=== PATIENT | female | born 1950 | race African-American/Black ===

== ENCOUNTER 2019-04-10 12:58 | Emergency (ER) | payer MEDICARE ==
[2019-04-10] MEDS ORDERED: Ketorolac Tromethamine 30 MG/ML VIAL ONE (14:48)
--- NOTE | 2019-04-10 15:01 | RAD ---
XR Sacrum and Coccyx STANDARD HISTORY: Sacral pain x1 month COMPARISON: None. FINDINGS: The bones are demineralized. There are vascular calcifications, there is no evidence of fra cture or any definite findings that would suggest osteomyelitis. IMPRESSION: No acute changes.
== END 2019-04-10 16:27 | disposition home or self-care (01) ==
LOC: ERS 12:58
DX: M53.3 Sacrococcygeal disorders, not elsewhere classified (principal); E11.22 Type 2 diabetes mellitus with diabetic chronic kidney disease; I12.0 Hypertensive chronic kidney disease with stage 5 chronic kidney disease or end stage renal disease; N18.6 End stage renal disease; Z99.2 Dependence on renal dialysis; Z79.899 Other long term (current) drug therapy
CPT/HCPCS: 72220; 96372; J1885

== ENCOUNTER 2019-08-13 16:25 | Emergency (ER) | payer MEDICARE ==
--- NOTE | 2019-08-13 17:38 | RAD ---
XR Chest 1 View Portable History: Chest pain Comparison: Radiograph 2015 Findings: Lungs are mildly hypoinflated. Heart size is enlarged. No pneumothorax. No definite airspac e consolidation. Impression: Lung hypoinflation with bibasilar atelectasis and cardiomegaly.
[2019-08-13 18:11] LABS: #Eosinphils 0.1 thou/uL (0.0-0.7); #Lymphocytes 1.5 thou/uL (1.20-3.40); #Monocytes 0.5 thou/uL (0.11-0.59); #Neutrophils 2.8 thou/uL (1.40-6.50); %Basophils 0.4 % (0.0-1.0); %Eosinophils 2.2 % (0.0-10.0); %Lymphocytes 30.3 % (21.0-51.0); %Monocytes 10.8 % (0.0-10.0); %Neutrophils 56.4 % (42.0-75.0); Hemoglobin 11.2 g/dL (12.0-16.0); Mean Corpuscular HGB CONC 31.6 g/dL (32.0-36.0); Mean Corpuscular Hemoglobin 26.7 pg (27.0-31.0); Mean Corpuscular Volume 84.5 fL (78.0-98.0); Mean Platelet Volume 10.5 fL (7.4-10.4); Platelet Count 137 thou/uL (130-400); RBC Distribution Width 15.5 % (11.5-14.5); Red Blood Cell (RBC) Count 4.21 mill/uL (4.20-5.40); White Blood Cell (WBC) Count 4.9 thou/uL (4.8-10.8)
[2019-08-13 18:33] LABS: ALT (SGPT) 10 U/L (8-55); AST (SGOT) 14 U/L (5-34); Albumin 3.8 g/dL (3.4-4.8); Alkaline Phosphatase 52 U/L (40-110); Anion Gap 16 mmol/L (10-20); BUN (Urea Nitrogen) 44 mg/dL (9.8-20.1); Bilirubin, Total 0.7 mg/dL (0.2-1.2); CK (CPK) 157 U/L (29-168); Calc. Creatinine Clearance 0 mL/min (70-130); Calcium 9.3 mg/dL (7.8-10.44); Carbon Dioxide 32 mmol/L (23-31); Chloride 97 mmol/L (98-107); Estimated GFR-MDRD 8; Globulin 3.1 g/dL (2.4-3.5); Glucose 107 mg/dL (83-110); Potassium 4.6 mmol/L (3.5-5.1); Protein, Total 6.9 g/dL (6.0-8.3); Sodium 140 mmol/L (136-145)
[2019-08-13] MEDS ORDERED: Aspirin 325 MG TAB ONE (18:52)
[2019-08-13 18:54] LABS: CKMB 1.7 ng/mL (0-6.6)
== END 2019-08-13 19:53 | disposition home or self-care (01) ==
LOC: ERS 16:25
DX: T82.118A Breakdown (mechanical) of other cardiac electronic device, initial encounter (principal); I12.0 Hypertensive chronic kidney disease with stage 5 chronic kidney disease or end stage renal disease; N18.6 End stage renal disease; E11.9 Type 2 diabetes mellitus without complications; Z79.899 Other long term (current) drug therapy; Z79.51 Long term (current) use of inhaled steroids; Z79.891 Long term (current) use of opiate analgesic; Z79.82 Long term (current) use of aspirin
CPT/HCPCS: 36415; 71045; 80053; 82550; 82553; 84484; 85025; 93005

== ENCOUNTER 2019-12-21 13:18 | Outpatient (CLI) | payer MEDICARE ==
--- NOTE | 2019-12-21 13:52 | RAD ---
Chest 2 views HISTORY: Dyspnea. Evaluate defibrillator lead for fracture. COMPARISON: 08/13/2019. FINDINGS: Cardiac silhouette is enlarged. Pulmonary vasculature upper limits of normal. Mediastinum is midline. A single lead left subclavian cardiac defibrillator is in place. While a smal l portion of the proximal metallic lead is obscured by the pacer pack, there is no evidence of discontinuity of the metallic lead. It is in good radiographic position. No confluent airspace consolidation, pneumothorax, or pleural fluid. Ossification of anterior longitudinal ligament of the thoracic spine on the lateral view is consisten t with diffuse idiopathic skeletal hyperostosis. IMPRESSION : No radiographic evidence of complication of the defibrillator. Metallic lead is intact. Cardiomegaly with borderline pulmonary vascular congestion.
== END 2019-12-21 13:19 | disposition home or self-care (01) ==
LOC: BICRAD 13:18
PROVIDERS: ATTEND Internal Medicine Cardiovascular Disease
DX: R06.00 Dyspnea, unspecified (principal); I51.7 Cardiomegaly; R09.89 Other specified symptoms and signs involving the circulatory and respiratory systems
CPT/HCPCS: 71046

== ENCOUNTER 2020-06-05 10:53 | Outpatient (CLI) | payer MEDICARE ==
--- NOTE | 2020-06-05 11:36 | RAD ---
EXAM: 3 views of the left wrist HISTORY: Wrist pain COMPARISON: None FINDINGS: 3 views of the left wrist shows no evidence of acute fracture or dislocation. No soft tissu e swelling is seen. Moderate degenerative changes are seen in the first CMC joint, which predominantly involves osseous erosions rather than osteophyte formation. No significant radiocarpal degenerative changes are seen. Vascular calcifications are seen. IMPRESSION: Moderate degenerative changes in the first CMC joint
== END 2020-06-05 10:54 | disposition home or self-care (01) ==
LOC: BICRAD 10:53
PROVIDERS: ATTEND Nurse Practitioner Family
DX: M25.532 Pain in left wrist (principal); M18.12 Unilateral primary osteoarthritis of first carpometacarpal joint, left hand

== ENCOUNTER 2020-09-17 19:10 | Inpatient (IN) | payer MEDICARE ==
[2020-09-17 19:52] LABS: #Lymphocytes 0.7 thou/uL (1.20-3.40); #Monocytes 0.4 thou/uL (0.11-0.59); #Neutrophils 2.1 thou/uL (1.40-6.50); %Basophils 0.1 % (0.0-1.0); %Eosinophils 0.6 % (0.0-10.0); %Lymphocytes 20.7 % (21.0-51.0); %Monocytes 13.1 % (0.0-10.0); %Neutrophils 65.5 % (42.0-75.0); Hemoglobin 11.6 g/dL (12.0-16.0); Mean Corpuscular HGB CONC 30.9 g/dL (32.0-36.0); Mean Corpuscular Hemoglobin 26.2 pg (27.0-31.0); Mean Corpuscular Volume 84.5 fL (78.0-98.0); Mean Platelet Volume 12.3 fL (7.4-10.4); Platelet Count 102 thou/uL (130-400); RBC Distribution Width 16.2 % (11.5-14.5); Red Blood Cell (RBC) Count 4.44 mill/uL (4.20-5.40); White Blood Cell (WBC) Count 3.2 thou/uL (4.8-10.8)
[2020-09-17 20:03] LABS: ALT (SGPT) 12 U/L (8-55); AST (SGOT) 26 U/L (5-34); Albumin 3.7 g/dL (3.4-4.8); Alkaline Phosphatase 44 U/L (40-110); Anion Gap 20 mmol/L (10-20); BUN (Urea Nitrogen) 40 mg/dL (9.8-20.1); Bilirubin, Total 0.9 mg/dL (0.2-1.2); Calc. Creatinine Clearance 0 mL/min (70-130); Calcium 8.3 mg/dL (7.8-10.44); Carbon Dioxide 29 mmol/L (23-31); Chloride 93 mmol/L (98-107); Globulin 3.8 g/dL (2.4-3.5); Glucose 94 mg/dL (83-110); Potassium 3.8 mmol/L (3.5-5.1); Protein, Total 7.5 g/dL (6.0-8.3); Sodium 138 mmol/L (136-145)
--- NOTE | 2020-09-17 20:10 | RAD ---
PORTABLE CHEST: Date: 09-17-2020 PROVIDED CLINICAL HISTORY: Chest pain, cough, Covid positive Comparison: 08-13-19 FINDINGS: The cardiac silhouette appears enlarged, which may be at least partially on the basis of portable sobia hnique. Left subclavian cardiac pacing device is again seen in similar position. No focal consolidati on, pleural fluid or pneumothorax apparent. IMPRESSION: No evidence for an acute cardiopulmonary process. POS: ZEB
[2020-09-17 20:22] LABS: Anisocytosis SLIGHT = 6-15 cells (100X) (0-5/hpf); MDiff Complete? YES; Ovalocytes SLIGHT = 2-5 cells (100X) (0-1/hpf); Platelet Morphology Comment Appears Decreased; Polychromasia SLIGHT = 2-3 cells (100X) (0-2/hpf)
[2020-09-17 20:26] LABS: CKMB 1.7 ng/mL (0-6.6)
[2020-09-17] MEDS ORDERED: Aspirin 325 MG TAB ONE (21:57)
[2020-09-17] MEDS ORDERED: Aspirin Chewable 81 MG TAB ONE (22:07)
[2020-09-17 23:14] LABS: Troponin I 0.098 ng/mL (< 0.028)
--- NOTE | 2020-09-18 00:07 | PDOC.FPRHP ---
- History of Present Illness Chief Complaint: wheezing, coughing, SOB History of Present Illness: 70 yo F with ESRD on HD MWF who came to the ER for wheezing, cough and chest pain with cough. Was exposed to granddaughter who tested COVID positive last week. She reports developing cough on 09/12, her symptoms have been persistent and she started developing chest pain with her coughing prompting her visit to the ER. She was found to have indeterminate troponins in the ER. Currently she denies any chest pain. She has HF with AICD and follows with Dr. Martinez-denies previous cardiac workup. Is on entresto and denies any issues breathing currently-only with coughing. She follows with Dr. Maier but missed HD to day since she didn't have anyone to take her. - Allergies/Adverse Reactions Allergies Allergy/AdvReac Type Severity Reaction Status Date / Time ciprofloxacin [From Cipro] Allergy Verified 12/12/19 09:19 - Home Medications Medication Instructions Recorded Confirmed Type Carvedilol 50 mg PO BID 04/27/13 11/07/16 History Ergocalciferol (Vitamin D2) 50,000 unit PO Q7DAYS 04/27/13 11/07/16 History [Vitamin D2] Fish Oil 3,000 mg PO DAILY 04/27/13 11/07/16 History hydrALAZINE HCl 3 tab PO TID 04/27/13 11/07/16 History Gabapentin [Neurontin] 300 mg PO TID 08/28/13 11/07/16 History Isosorbide Mononitrate [Imdur ER] 120 mg PO QPM 08/28/13 11/07/16 History Ferrous Sulfate [Feosol] 325 mg PO DAILY 08/06/14 11/07/16 History HYDROcodone Bit/APAP 5/325 [[place] 1 tab PO Q4HR PRN 07/31/15 11/07/16 History 5/325] Atorvastatin Calcium [Lipitor] 10 mg PO DAILY 10/16/16 11/07/16 History Linagliptin [Tradjenta] 5 mg PO DAILY 10/16/16 11/07/16 History Propylene Glycol/PEG 400/PF 1 each OP BID 10/16/16 11/07/16 History [Systane 0.3-0.4% Eye Drops] Sevelamer Carbonate [Renvela] 800 mg PO DAILY 10/16/16 11/07/16 History rOPINIRole HCl [Ropinirole HCl] 1 mg PO DAILY 10/16/16 11/07/16 History Aspirin [Giancarlo Chewable] 81 mg PO DAILY 11/06/16 11/07/16 History Sertraline HCl [Zoloft] 100 mg PO DAILY 11/06/16 11/07/16 History Tramadol HCl 50 mg PO Q6H PRN 11/06/16 11/07/16 History HYDROcodone Bit/APAP 10/325 [[place] 1 - 2 tab PO Q4HR PRN 11/07/16 11/07/16 History 10/325] - History PMHx: Hx of gangrene and b/l amputations, neuropathy, HTN, DM2, heart failure with AICD, HLD PSHx: AV fisula, thrombolysis for right arm ischemia after HD access FHx:HTN Social: Denies TAD - Review of Systems General: denies: fever/chills, weight/appetite/sleep changes ENT: reports: nasal congestion, rhinorrhea Respiratory: reports: cough, congestion, shortness of breath Cardiovascular: reports: chest pain. denies: palpitation, edema Gastrointestinal: denies: nausea, vomiting, diarrhea, abdominal pain, GI bleeding Skin: denies: rashes Musculoskeletal: denies: pain, tenderness Neurological: denies: numbness, syncope, seizure, weakness Psychological: denies: anxiety, depression - Vital signs 134/62, MAP: 86, Pulse: 82, Resp: 16, Temp: 98.6 (Oral), Pain: 10, O2 sat: 96 on (Room Air), Time: 09/17/2020 22:15.Wt: [79kg] - Physical Exam Constitutional: NAD, awake, alert and oriented HEENT: normocephalic and atraumatic, PERRLA, EOMI, conjunctiva clear, no scleral icterus Neck: supple, FROM, trachea midline Heart: RRR, normal S1/S2 Lungs: CTAB, no respiratory distress, good air movement Abdomen: soft, non-tender -Musculoskeletal: b/l amputation right arm for HD access Neurological: CN II-XII intact Skin: capillary refill <2 seconds Heme/Lymphatic: no unusual bruising or bleeding Psychiatric: normal mood and affect, good judgment and insight FMR H&P: Results - Labs Result Diagrams: 09/18/20 01:56 09/18/20 01:56 Lab results: WBC 3.2 thou/uL (4.8-10.8) L 09/17/20 19:34 Hgb 11.6 g/dL (12.0-16.0) L 09/17/20 19:34 Hct 37.6 % (36.0-47.0) 09/17/20 19:34 MCV 84.5 fL (78.0-98.0) 09/17/20 19:34 Plt Count 102 thou/uL (130-400) L 09/17/20 19:34 Neutrophils % 65.5 % (42.0-75.0) 09/17/20 19:34 Sodium 138 mmol/L (136-145) 09/17/20 19:34 Potassium 3.8 mmol/L (3.5-5.1) 09/17/20 19:34 Chloride 93 mmol/L (98-107) L 09/17/20 19:34 Carbon Dioxide 29 mmol/L (23-31) 09/17/20 19:34 BUN 40 mg/dL (9.8-20.1) H 09/17/20 19:34 Creatinine 8.89 mg/dL (0.6-1.1) H 09/17/20 19:34 Glucose 94 mg/dL (83-110) 09/17/20 19:34 Calcium 8.3 mg/dL (7.8-10.44) 09/17/20 19:34 Total Bilirubin 0.9 mg/dL (0.2-1.2) 09/17/20 19:34 AST 26 U/L (5-34) 09/17/20 19:34 ALT 12 U/L (8-55) 09/17/20 19:34 Alkaline Phosphatase 44 U/L (40-110) 09/17/20 19:34 CK-MB (CK-2) 1.7 ng/mL (0-6.6) 09/17/20 19:34 Serum Total Protein 7.5 g/dL (6.0-8.3) 09/17/20 19:34 Albumin 3.7 g/dL (3.4-4.8) 09/17/20 19:34 - EKG Interpretation EKG: Sinus rhythm with 1st degree AV block LAD LBBB - Radiology Interpretation Chest x-ray Status: image reviewed by me, report reviewed by me Additional comment: no acute CP processes FMR H&P: A/P - Plan 70 yo F here for chest pain-ACS rule out. #Chest pain, ACS r/o -Indeterminate troponin, trend -Heart 5, currently asx -Admit to tele/continue monitoring -Nitro PRN -NPO, consider NST in AM #COVID+ respiratory infection, mild -Tested positive 09/12 per patient report - call [facility] in [place] to confirm results -CXR wnl, non hypoxic, not tachypneic -Stable, can due MDI duoneb PRN -No need for labs or steroids at this time -COVID precuations #ESRD on HD -Cr more elevated than normal-likely due to missed HD -Electrolytes stable -Recheck in AM, talk with Dr. Maier in AM, needs HD -PT/OT/CM consulted since pt with transport issues to HD-may need temporary placement #DM2 -Sliding scale #HTN -Home meds #B/L amputation -Stable #HF with AICD -Euvolemic -Strict I/O, fluid restricted diet #Low WBC -3.2, has been this low before, rpt in AM #Thrombocytopenia -Plt 102, no signs of active bleeding, has also been this low in past -Monitor & repeat in AM dvt ppx: heparin ppx abx: none los: <48 hours code: full pcp: Natalia Addendum - Attending - Attending Attestation Date/Time: 09/18/20 [id number] I personally evaluated the patient and discussed the management with Dr. Rinaldi. I agree with the History, Examination, Assessment and Plan documented above with any addition or exceptions noted below. Patient here for CP r/o. She has been ruled out with CE. Her pain complaint is more c/w pleuritic pain, and she has COVID. Will need outpatient cards f/u after recovering from COVID. She is not having O2 requirement. She needs HD and will work to help set up HD in outpatient setting given her COVID status. Hopeful discharge once that can be arranged.
[2020-09-18] MEDS ORDERED: Dextrose 5% in Water 1,000 ML IV PRN (01:09)
[2020-09-18] MEDS ORDERED: HumaLOG 300 UNITS/3 ML VIAL SC PRN ×2 (01:09)
[2020-09-18] MEDS ORDERED: Dextrose 50% Abboject 50 ML SYRINGE SLOW IVP PRN (01:09)
[2020-09-18] MEDS ORDERED: Aspirin 81 mg Enteric Coated Tablet PO SCH ×2 (01:30→09:00)
[2020-09-18] MEDS ORDERED: Aspirin Chewable 81 MG TAB ONE (01:40)
[2020-09-18 02:18] LABS: Hemoglobin A1c 5.7 % (4.0-6.0)
[2020-09-18 02:35] LABS: Troponin I 0.106 ng/mL (< 0.028)
[2020-09-18 02:37] LABS: Band 5 % (5-11); Hemoglobin 10.9 g/dL (12.0-16.0); Hypochromia SLIGHT = 6-15 cells (100X) (0-5/hpf); Lymphocytes 20 % (21-51); MDiff Complete? YES; Mean Corpuscular HGB CONC 30.7 g/dL (32.0-36.0); Mean Corpuscular Hemoglobin 25.9 pg (27.0-31.0); Mean Corpuscular Volume 84.2 fL (78.0-98.0); Mean Platelet Volume 7.7 fL (7.4-10.4); Monocytes 6 % (0-10); Neutrophil 69 % (42-75); Platelet Count 97 thou/uL (130-400); Platelet Morphology Comment Appears Adequate; RBC Distribution Width 16.1 % (11.5-14.5); Red Blood Cell (RBC) Count 4.23 mill/uL (4.20-5.40); White Blood Cell (WBC) Count 2.9 thou/uL (4.8-10.8)
[2020-09-18 02:38] LABS: Anion Gap 21 mmol/L (10-20); BUN (Urea Nitrogen) 44 mg/dL (9.8-20.1); Calc. Creatinine Clearance 0 mL/min (70-130); Calcium 8.2 mg/dL (7.8-10.44); Carbon Dioxide 27 mmol/L (23-31); Cardiac Risk 4.1 (Less than 4.5); Chloride 93 mmol/L (98-107); Cholesterol 115 mg/dl (< 200 Desired); Glucose 85 mg/dL (83-110); HDL Cholesterol 28 mg/dL (>60 Neg Risk); LDL Cholesterol, Calculated 62 mg/dL; Potassium 3.6 mmol/L (3.5-5.1); Sodium 137 mmol/L (136-145); Triglycerides 123 mg/dL (Less than 150)
[2020-09-18 05:39] LABS: Troponin I 0.096 ng/mL (< 0.028)
--- NOTE | 2020-09-18 06:07 | PDOC.FM ---
- Subjective Subjective: Pt has improved from yesterday. Her chest pain is not present. It was pleuritic chest pain yesterday. She denies being fluid overloaded although she did miss her dialysis. Vitals were stable in room. She does not recall etiology of HF. She is unsure if she had a stress or cardiac cath but is seen by Dr. Martinez. She complains of abdominal tenderness at her site of heydi corporis which is chronic. She denies SOB. - Objective Result Diagrams: 09/18/20 01:56 09/18/20 01:56 Phys Exam - Physical Examination Constitutional: NAD HEENT: PERRLA, moist MMs Neck: full ROM expiratory wheeze appreciate Cardiovascular: RRR, no significant murmur Gastrointestinal: soft, positive bowel sounds mild tenderness to lower abdomen; excoriated Musculoskeletal: no edema bilateral aka Psychiatric: normal affect, A&O x 3 Skin: cap refill <2 seconds Dx/Plan (1) CHF (congestive heart failure) Code(s): I50.9 - HEART FAILURE, UNSPECIFIED Status: Acute (2) Coronary artery disease Code(s): I25.10 - ATHSCL HEART DISEASE OF [place] CORONARY ARTERY W/O ANG PCTRS Status: Acute (3) Depression Code(s): F32.9 - MAJOR DEPRESSIVE DISORDER, SINGLE EPISODE, UNSPECIFIED Status: Acute (4) Diabetes mellitus Code(s): E11.9 - TYPE 2 DIABETES MELLITUS WITHOUT COMPLICATIONS Status: Acute (5) End-stage renal disease (ESRD) Code(s): N18.6 - END STAGE RENAL DISEASE Status: Acute - Plan Plan: 70 yo F here for chest pain-ACS rule out. #Chest pain, ACS r/o -Indeterminate troponin, trend -Heart 5, currently asx -Discuss with cardiology as pt is COVID positive, could possibly be done in outpt setting once COVID resolves. Will reassess chest pain. #COVID+ respiratory infection, mild -Tested positive 09/12 per patient report - call [facility] in [place]. Positive on re-test during admission. -CXR wnl, non hypoxic, not tachypneic -Stable, can due JOSIAS merlos PRN -No need for labs or steroids at this time -COVID precautions #ESRD on HD -Cr more elevated than normal-likely due to missed HD -Electrolytes stable -Recheck in AM, talk with Dr. Maier in AM, needs HD -PT/OT/CM consulted since pt with transport issues to HD-may need temporary placement #DM2 -Sliding scale #HTN -Home meds #B/L amputation -Stable #HF with AICD -Euvolemic -Strict I/O, fluid restricted diet - pending BNP #Low WBC -3.2, has been this low before, rpt in AM #Thrombocytopenia -Plt 102, no signs of active bleeding, has also been this low in past -Monitor & repeat in AM # Heydi Corporis - topical antifungal cream dvt ppx: heparin ppx abx: none los: <48 hours code: full pcp: Natalia Addendum - Attending - Attending Attestation Date/Time: 09/18/20 [id number] I personally evaluated the patient and discussed the management with Dr. Norwood. I agree with the History, Examination, Assessment and Plan documented above with any addition or exceptions noted below. HD today. Work to arrange alternative outpatient HD given her COVID status and should hopefully be stable for discharge home as she is otherwise medically stable for discharge.
[2020-09-18] MEDS: Heparin 5,000 UNITS/ML VIAL SC SCH ×3 (07:28→21:58)
[2020-09-18] MEDS ORDERED: Albuterol 200 PUFF (6.7GM INHALER) ONE (08:09)
[2020-09-18] MEDS: Albuterol 200 PUFF (6.7GM INHALER) INH SCH ×4 (08:21→18:14)
[2020-09-18 08:29] LABS: SARS-CoV-2 MS2 Positive; SARS-CoV-2 N Gene Positive; SARS-CoV-2 S Gene Positive; SARS-CoV-2 by NAA DETECTED (NotDetected); SARS-CoV-2 orf1ab Positive
[2020-09-18] MEDS: guaiFENesin ER 600 MG TAB PO SCH ×2 (10:41→21:57)
[2020-09-18 19:21] VITALS: BMI 89.6
[2020-09-18] MEDS: Sacubitril 49 MG/Valsartan 51 MG TABLET PO SCH (21:57)
[2020-09-18] MEDS: Calcium Acetate 667 MG CAP PO SCH (21:57)
[2020-09-18] MEDS: Benzonatate 100 MG CAP PO SCH (21:57)
[2020-09-18] MEDS: rOPINIRole HCl 1 MG TAB PO SCH (21:58)
[2020-09-18] MEDS: Polyethylene Glycol OPTH DROP 15 ML BOT EA EYE SCH (21:58)
[2020-09-19] MEDS ORDERED: Gabapentin 300 MG CAP PO SCH ×2 (00:15→09:00)
--- NOTE | 2020-09-19 06:13 | CON ---
DATE OF CONSULTATION: 09/18/2020 SERVICE: Nephrology. REASON FOR CONSULTATION: End-stage renal disease management. HISTORY OF PRESENT ILLNESS: A 70-year-old female with known history of end-stage renal disease, on hemodialysis, Thursday, Thursday, Thursday, was admitted due to worsening cough and chest pain associated with wheezing and body aches. The patient admitted to [facility] and had presented to the hospital on September 17 due to the symptoms and was admitted. Nephrology consult was requested for end-stage renal disease management. The patient follows Dr. Maier, who I am covering this time. Denied nausea, vomiting, abdominal pain, or headache. PAST MEDICAL HISTORY: 1. End-stage renal disease, on hemodialysis. 2. Neuropathy. 3. Diabetes mellitus. 4. Diabetic foot infection, status post bilateral above-knee amputation. 5. Cardiomyopathy status post AICD placement. 6. Chronic heart failure. 7. Hyperlipidemia. PAST SURGICAL HISTORY: AV fistula creation. FAMILY HISTORY: Significant for hypertension. SOCIAL HISTORY: Lives with family. Denied alcohol, tobacco, or recreational drug use. ALLERGIES: CIPROFLOXACIN. MEDICATIONS: Prior to hospital, medications are as follows; 1. Carvedilol 50 mg p.o. b.i.d. 2. Vitamin D 50,000 units every 7 days. 3. Fish oil one daily. 4. Hydralazine 75 mg p.o. t.i.d. 5. Gabapentin 300 mg p.o. t.i.d. 6. Isosorbide mononitrate 120 mg p.o. daily at bedtime. 7. Ferrous sulfate 325 mg p.o. daily. 8. Hydrocodone/acetaminophen p.r.n. 9. Lipitor 10 mg p.o. daily. 10. Tradjenta 5 mg p.o. daily. 11. MiraLAX b.i.d. 12. Propylene Glycol/PEG 400/PF (Systane) 1 drop to each eye b.i.d. 13. Sevelamer carbonate 800 mg p.o. t.i.d. with meals. 14. Requip 1 mg p.o. daily. 15. Aspirin 81 mg p.o. daily. 16. Sertraline 100 mg p.o. daily. 17. Tramadol 50 mg q.6 p.r.n. for pain. REVIEW OF SYSTEMS: 12-point review of system performed was negative other than pertinent positives and negatives included in the history of present illness. PHYSICAL EXAMINATION: VITAL SIGNS: Temperature 97.2, pulse 82, respiratory rate 17, SpO2 100% on room air, blood pressure 122/53. GENERAL: Elderly female, in no obvious distress. Afebrile. Anicteric. Acyanotic. HEENT: Normocephalic, atraumatic. Oral mucosa is moist. NECK: Supple with no obvious JVD. CARDIOVASCULAR: Regular rhythm and rate with normal heart sounds. RESPIRATORY: Fair air entry bilateral with no obvious crackle. Some transmitted breath sounds noted. GI: Abdomen is full, soft, nontender, nondistended with normal bowel sounds. MUSCULOSKELETAL: Bilateral AKA noted. Right hand first digit amputation also noted. Right arm AV fistula noted as well. NEUROLOGY: Conscious and alert oriented x3 with appropriate mental status. Cranial nerves II through XII grossly intact. DIAGNOSTIC DATA: CBC today showed WBC count of 2.9, hemoglobin of 10.9, MCV of 84.2, platelet of 97. On presentation yesterday, WBC was 3.2, hemoglobin was 11.6, and platelet 102. Chemistry earlier today showed sodium 137, potassium 3.6, chloride 93, CO2 of 27, BUN 44, creatinine 9.15. Chest x-ray performed on presentation on September 17 showed no evidence of acute cardiopulmonary disease. Cardiac silhouette appeared enlarged, but there is no focal consolidation, pleural effusion, or pneumothorax. ASSESSMENT: 1. End-stage renal disease, on hemodialysis, Thursday, Thursday, Thursday. Last hemodialysis was on September 15. 2. Hypertension: Control is acceptable. 3. Anemia in chronic kidney disease. 4. Hyperphosphatemia on phosphate binder. 5. Secondary hyperparathyroidism. 6. Vitamin D deficiency. PLAN: We will dialyze the patient today as she missed treatment yesterday. We will continue phosphate binder and vitamin D supplementation. We will monitor hemoglobin and hematocrit and plan on restarting erythropoietin stimulating agent. Further treatment to follow depending on hospital course. Many thanks for involving us in the care of this patient. Job ID: [id number]
--- NOTE | 2020-09-19 07:16 | PDOC.FM ---
- Subjective Subjective: Pt is doing well today. Denies respiratory distress and shortness of breath. She is tolerating PO intake. Tolerated dialysis well yesterday. She would like her gabapentin 900 mg TID restarted. Confirmed with medication in room. - Objective Vital Signs & Weight: Vital Signs (12 hours) Temp Pulse Resp BP BP Pulse Ox 09/19/20 02:51 98.5 F 80 18 112/56 L 92 L 09/19/20 00:52 92 L 09/18/20 23:53 99.8 F H 92 20 118/56 L 94 L 09/18/20 19:21 98.4 F 71 22 H 102/56 L 98 Weight Weight 74.984 kg I&O: 09/18/20 09/19/20 09/20/20 06:59 06:59 06:59 Intake Total 680 Output Total 1000 Balance -320 Result Diagrams: 09/18/20 01:56 09/19/20 08:49 Phys Exam - Physical Examination Constitutional: NAD HEENT: PERRLA, moist MMs Neck: no JVD, full ROM Respiratory: no wheezing, clear to auscultation bilateral Cardiovascular: RRR, no rub Gastrointestinal: soft, positive bowel sounds Musculoskeletal: no edema bilateralk AKA Neurological: non-focal, moves all 4 limbs Psychiatric: normal affect, A&O x 3 Skin: no rash, cap refill <2 seconds Dx/Plan (1) CHF (congestive heart failure) Code(s): I50.9 - HEART FAILURE, UNSPECIFIED Status: Acute (2) Coronary artery disease Code(s): I25.10 - ATHSCL HEART DISEASE OF [place] CORONARY ARTERY W/O ANG PCTRS Status: Acute (3) Depression Code(s): F32.9 - MAJOR DEPRESSIVE DISORDER, SINGLE EPISODE, UNSPECIFIED Status: Acute (4) Diabetes mellitus Code(s): E11.9 - TYPE 2 DIABETES MELLITUS WITHOUT COMPLICATIONS Status: Acute (5) End-stage renal disease (ESRD) Code(s): N18.6 - END STAGE RENAL DISEASE Status: Acute - Plan Plan: 70 yo F here for positive COVID infection requiring placement for ESRD/dailysis. #COVID+ respiratory infection, mild -Tested positive 09/12 per patient report. Retest positive. -CXR wnl, non hypoxic, not tachypneic -Stable, can due MDI duoneb PRN -No need for labs or steroids at this time -COVID precautions #ESRD on HD -Continue schedule -Dr. Maier consulted, appreciate recs -PT/OT/CM consulted since pt with transport issues to HD-needs temporary COVID dialysis placement #Pleuritic Chest Pain - Not likely cardiac in nature. Patient does have risk factors for CAD but clinical picture does not appear to be cardiac. She did have indeterminate trops but in setting of ESRD #DM2 -Sliding scale -Restart gabapentin #HTN -Held home meds other than entresto as BP is well controlled #B/L amputation -Stable #HF with AICD -Euvolemic -Strict I/O, fluid restricted diet -Restart Entresto #Low WBC -3.2, has been this low before, rpt in AM #Thrombocytopenia -No signs of active bleeding, has also been this low in past # Heydi Corporis - topical antifungal cream dvt ppx: heparin ppx abx: none los: >48 hours code: full pcp: Natalia Addendum - Attending - Attending Attestation Date/Time: 09/19/20 [id number] I personally evaluated the patient and discussed the management with Dr. Urbano galan. I agree with the History, Examination, Assessment and Plan documented above with any addition or exceptions noted below.
[2020-09-19] MEDS: Albuterol 200 PUFF (6.7GM INHALER) INH SCH ×4 (07:41→22:01)
[2020-09-19] MEDS: Fish Oil 1,000 MG CAP PO SCH (07:41)
[2020-09-19] MEDS: Benzonatate 100 MG CAP PO SCH ×3 (07:41→21:32)
[2020-09-19] MEDS: Sacubitril 49 MG/Valsartan 51 MG TABLET PO SCH (07:42)
[2020-09-19] MEDS: Alogliptin 25 MG TAB PO SCH (07:42)
[2020-09-19] MEDS: Atorvastatin Calcium 10 MG TAB PO SCH (07:42)
[2020-09-19] MEDS: guaiFENesin ER 600 MG TAB PO SCH ×2 (07:42→21:32)
[2020-09-19] MEDS: Ferrous Sulfate 325 MG TAB PO SCH (07:42)
[2020-09-19] MEDS: rOPINIRole HCl 1 MG TAB PO SCH ×2 (07:42→21:31)
[2020-09-19] MEDS: Aspirin 325 MG TAB PO SCH (07:42)
[2020-09-19] MEDS: Polyethylene Glycol OPTH DROP 15 ML BOT EA EYE SCH ×2 (07:43→21:32)
--- NOTE | 2020-09-19 09:07 | PDOC.NEPPN ---
- Subjective Encounter Date: 09/19/20 Subjective: Seen in follow up for ESRD management. Patient is feeling better. tolerating oral intake. Denied fever or SOB. - Objective Vital Signs & Weight: Vital Signs (12 hours) Temp Pulse Resp BP BP Pulse Ox 09/19/20 07:55 98.1 F 80 18 104/77 93 L 09/19/20 02:51 98.5 F 80 18 112/56 L 92 L 09/19/20 00:52 92 L 09/18/20 23:53 99.8 F H 92 20 118/56 L 94 L Weight Admit Weight 165 lb 5 oz Weight 165 lb 5 oz I&O: 09/18/20 09/19/20 09/20/20 06:59 06:59 06:59 Intake Total 680 Output Total 1000 Balance -320 Result Diagrams: 09/18/20 01:56 09/19/20 08:49 Additional Labs: Accuchecks 09/19/20 09/18/20 09/18/20 05:58 16:54 10:37 POC Glucose 111 H 112 H 71 Nephrology ROS - Medication Medications: Active Medications Generic Name Dose Route Start Last Admin Trade Name Freq PRN Reason Stop Dose Admin Albuterol Sulfate 2 puff 09/18/20 07:00 09/19/20 07:41 Albuterol 200 Puff (6.7gm Inhaler) INH 2 puff [id number] KOURTNEY Administration Alogliptin Benzoate 25 mg 09/19/20 09:00 09/19/20 07:42 Alogliptin 25 Mg Tab PO 25 mg DAILY KOURTNEY Administration Aspirin 325 mg 09/19/20 09:00 09/19/20 07:42 Aspirin 325 Mg Tab PO 325 mg DAILY KOURTNEY Administration Atorvastatin Calcium 20 mg 09/19/20 09:00 09/19/20 07:42 Atorvastatin Calcium 10 Mg Tab PO 20 mg DAILY KOURTNEY Administration Benzonatate 200 mg 09/18/20 21:00 09/19/20 07:41 Benzonatate 100 Mg Cap PO 200 mg TID KOURTNEY Administration Calcium Acetate 1,334 mg 09/18/20 21:00 09/18/20 21:57 Calcium Acetate 667 Mg Cap PO 1,334 mg TID KOURTNEY Administration Ferrous Sulfate 325 mg 09/19/20 09:00 09/19/20 07:42 Ferrous Sulfate 325 Mg Tab PO 325 mg DAILY KOURTNEY Administration Fish Oil 3,000 mg 09/19/20 09:00 09/19/20 07:41 Fish Oil 1,000 Mg Cap PO 3,000 mg DAILY KOURTNEY Administration Guaifenesin 600 mg 09/18/20 09:00 09/19/20 07:42 Guaifenesin Er 600 Mg Tab PO 600 mg Q12HR KOURTNEY Administration Heparin Sodium (Porcine) 5,000 units 09/18/20 09:00 09/18/20 21:58 Heparin 5,000 Units/Ml Vial SC 5,000 units TID KOURTNEY Administration Pantoprazole Sodium 40 mg 09/19/20 09:00 09/19/20 07:42 Pantoprazole 40 Mg Tab PO 40 mg DAILY KOURTNEY Administration Propylene Glycol 1 drop 09/18/20 21:00 09/19/20 07:43 Polyethylene Glycol Opth Drop 15 Ml Bot EA EYE 1 drp BID KOURTNEY Administration Ropinirole HCl 1 mg 09/18/20 21:00 09/19/20 07:42 Ropinirole Hcl 1 Mg Tab PO 1 mg BID KOURTNEY Administration Sacubitril/Valsartan 1 tab 09/18/20 21:00 09/19/20 07:42 Sacubitril 49 Mg/Valsartan 51 Mg Tablet PO 1 tab BID KOURTNEY Administration - Exam General Appearance: awake alert Eye: anicteric sclera ENT: normocephalic atraumatic, moist mucosa Neck: symmetric, no JVD Respiratory - other findings: Fair air entry bilaterally Cardiovascular: RRR Gastrointestinal: soft, non-tender, non-distended, normal bowel sounds Extremities - other findings: Bilateral AKA with healthy stumps Neurological: CN's grossly intact PSYCH: A&O x 3 Nephrology Results - Labs Result Diagrams: 09/18/20 01:56 09/19/20 08:49 Lab results: WBC 2.9 thou/uL (4.8-10.8) L 09/18/20 01:56 Hgb 10.9 g/dL (12.0-16.0) L 09/18/20 01:56 Hct 35.6 % (36.0-47.0) L 09/18/20 01:56 MCV 84.2 fL (78.0-98.0) 09/18/20 01:56 Plt Count 97 thou/uL (130-400) L 09/18/20 01:56 Neutrophils % 65.5 % (42.0-75.0) 09/17/20 19:34 Band Neuts % (Manual) 5 % (5-11) 09/18/20 01:56 Sodium 137 mmol/L (136-145) 09/18/20 01:56 Potassium 3.6 mmol/L (3.5-5.1) 09/18/20 01:56 Chloride 93 mmol/L (98-107) L 09/18/20 01:56 Carbon Dioxide 27 mmol/L (23-31) 09/18/20 01:56 BUN 44 mg/dL (9.8-20.1) H 09/18/20 01:56 Creatinine 9.15 mg/dL (0.6-1.1) H 09/18/20 01:56 Glucose 85 mg/dL (83-110) 09/18/20 01:56 Calcium 8.2 mg/dL (7.8-10.44) 09/18/20 01:56 Total Bilirubin 0.9 mg/dL (0.2-1.2) 09/17/20 19:34 AST 26 U/L (5-34) 09/17/20 19:34 ALT 12 U/L (8-55) 09/17/20 19:34 Alkaline Phosphatase 44 U/L (40-110) 09/17/20 19:34 CK-MB (CK-2) 1.7 ng/mL (0-6.6) 09/17/20 19:34 Troponin I 0.096 ng/mL (< 0.028) H 09/18/20 04:46 B-Natriuretic Peptide 611.2 pg/mL (0-100) H 09/18/20 08:19 Serum Total Protein 7.5 g/dL (6.0-8.3) 09/17/20 19:34 Albumin 3.7 g/dL (3.4-4.8) 09/17/20 19:34 Sodium 137 mmol/L (136-145) 09/18/20 01:56 Potassium 3.6 mmol/L (3.5-5.1) 09/18/20 01:56 Chloride 93 mmol/L (98-107) L 09/18/20 01:56 Carbon Dioxide 27 mmol/L (23-31) 09/18/20 01:56 Anion Gap 21 mmol/L (10-20) H 09/18/20 01:56 BUN 44 mg/dL (9.8-20.1) H 09/18/20 01:56 Creatinine 9.15 mg/dL (0.6-1.1) H 09/18/20 01:56 Glucose 85 mg/dL (83-110) 09/18/20 01:56 Calcium 8.2 mg/dL (7.8-10.44) 09/18/20 01:56 Albumin 3.7 g/dL (3.4-4.8) 09/17/20 19:34 Nephrology AP PN - Plan ESRD on HD. Last treatment was on 09/18/2020. Patient used to dialyze on MWF but was moved over to TTS schedule. She however cannot go for treatments due to transport issues. Electrolytes, acid/base and volume status are acceptable. No neeed for HD today. HTN: Control. Disposition: can be discharged from nephrology point of view once transportation issue to facilitate outpatient dialysis is sorted. Since patient has bilateral AKA, she cannot be discharge as yet without transportation arrangement. Will dialyze patient tomorrow if she is still here.
[2020-09-19 09:18] LABS: Albumin 3.6 g/dL (3.4-4.8); Anion Gap 18 mmol/L (10-20); BUN (Urea Nitrogen) 36 mg/dL (9.8-20.1); BUN/Creatinine Ratio 5.04; Calc. Creatinine Clearance 8 mL/min (70-130); Calcium 8.4 mg/dL (7.8-10.44); Carbon Dioxide 27 mmol/L (23-31); Chloride 96 mmol/L (98-107); Glucose 103 mg/dL (83-110); Phosphorus 3.1 mg/dL (2.3-4.7); Sodium 137 mmol/L (136-145)
[2020-09-19] MEDS: Calcium Acetate 667 MG CAP PO SCH ×3 (09:48→21:31)
[2020-09-19] MEDS: Gabapentin 300 MG CAP PO SCH (09:49)
[2020-09-19] MEDS: Heparin 5,000 UNITS/ML VIAL SC SCH ×3 (09:49→21:31)
[2020-09-19] MEDS ORDERED: Carvedilol 25 MG TAB PO SCH (10:00)
[2020-09-19] MEDS: Carvedilol 25 MG TAB PO SCH ×2 (17:37→18:18)
[2020-09-20] MEDS: Sacubitril 49 MG/Valsartan 51 MG TABLET PO SCH ×2 (05:12→08:57)
--- NOTE | 2020-09-20 07:04 | PDOC.FM ---
- Subjective Subjective: Doing well today without complications. She is not sob. She still states her family cannot give her a ride. She gave me the number to her 2 daughters and granddaughter. - Objective Vital Signs & Weight: Vital Signs (12 hours) Temp Pulse Resp BP BP Pulse Ox 09/20/20 04:00 98.1 F 79 18 104/53 L 91 L 09/20/20 03:28 95 09/19/20 23:20 98.3 F 74 22 H 116/66 95 09/19/20 19:40 98.1 F 72 16 103/56 L 95 Weight Admit Weight 74.984 kg Weight 74.984 kg I&O: 09/19/20 09/20/20 09/21/20 06:59 06:59 06:59 Intake Total 680 840 Output Total 1000 0 Balance -320 840 Result Diagrams: 09/18/20 01:56 09/19/20 08:49 Phys Exam - Physical Examination Constitutional: NAD HEENT: PERRLA, moist MMs Neck: no JVD, full ROM Respiratory: no wheezing, clear to auscultation bilateral Cardiovascular: RRR, no significant murmur Gastrointestinal: soft, non-tender, positive bowel sounds Musculoskeletal: no edema bilateral aka Neurological: non-focal, moves all 4 limbs Psychiatric: normal affect, A&O x 3 Skin: no rash, normal turgor Dx/Plan (1) CHF (congestive heart failure) Code(s): I50.9 - HEART FAILURE, UNSPECIFIED Status: Acute (2) Coronary artery disease Code(s): I25.10 - ATHSCL HEART DISEASE OF [place] CORONARY ARTERY W/O ANG PCTRS Status: Acute (3) Depression Code(s): F32.9 - MAJOR DEPRESSIVE DISORDER, SINGLE EPISODE, UNSPECIFIED Status: Acute (4) Diabetes mellitus Code(s): E11.9 - TYPE 2 DIABETES MELLITUS WITHOUT COMPLICATIONS Status: Acute (5) End-stage renal disease (ESRD) Code(s): N18.6 - END STAGE RENAL DISEASE Status: Acute - Plan Plan: 70 yo F here for positive COVID infection requiring placement for ESRD/dailysis. #COVID+ respiratory infection, mild -Tested positive 09/12 per patient report - we do not have documents. Retest positive on 09/18 -CXR wnl, non hypoxic, not tachypneic -Stable, can due JOSIAS merlos PRN -No need for labs or steroids at this time -COVID precautions #ESRD on HD -Continue schedule -Dr. Mendoza consulted, appreciate recs -Pt has T//SAT set up by Dr. Mendoza at [facility]. Pt needs a ride or will not be able to make appt due to COVID. Family is not willing to help patient. She will need to be 10 days removed from our positive test and fever free for 24 hours before she is removed from isolation precautions. Will call family today. #Pleuritic Chest Pain in setting of COVID - Not likely cardiac in nature. Patient does have risk factors for CAD but clinical picture does not appear to be cardiac. She did have indeterminate trops but in setting of ESRD #DM2 -Sliding scale -Restart gabapentin #HTN -Held home meds other than entresto, Coreg. Decreased coreg to 6.25 mg BID as she had a hypotensive episode after receiving 25 mg yesterday #B/L amputation -Stable #HF with AICD -Euvolemic -Strict I/O, fluid restricted diet -Restart Entresto #Low WBC -3.2, has been this low before, rpt in AM #Thrombocytopenia -No signs of active bleeding, has also been this low in past # Heydi Corporis - topical antifungal cream dvt ppx: heparin ppx abx: none los: >48 hours code: full pcp: Natalia Addendum - Attending - Attending Attestation Date/Time: 09/20/20 [id number] I personally evaluated the patient and discussed the management with Dr. Norwood. I agree with the History, Examination, Assessment and Plan documented above with any addition or exceptions noted below. Patient stable for discharge to swing bed.
--- NOTE | 2020-09-20 07:50 | PDOC.NEPPN ---
- Subjective Encounter Date: 09/20/20 Subjective: Seen and examined. No new problem. Awaiting transportation arrangement to enable her go for HD treatments. - Objective Vital Signs & Weight: Vital Signs (12 hours) Temp Pulse Resp BP BP Pulse Ox 09/20/20 04:00 98.1 F 79 18 104/53 L 91 L 09/20/20 03:28 95 09/19/20 23:20 98.3 F 74 22 H 116/66 95 Weight Admit Weight 165 lb 5 oz Weight 165 lb 5 oz I&O: 09/19/20 09/20/20 09/21/20 06:59 06:59 06:59 Intake Total 680 840 Output Total 1000 0 Balance -320 840 Result Diagrams: 09/18/20 01:56 09/19/20 08:49 Additional Labs: Accuchecks 09/20/20 09/19/20 09/19/20 05:46 16:52 11:27 POC Glucose 92 117 H 104 H Nephrology ROS - Medication Medications: Active Medications Generic Name Dose Route Start Last Admin Trade Name Freq PRN Reason Stop Dose Admin Albuterol Sulfate 2 puff 09/18/20 07:00 09/19/20 22:01 Albuterol 200 Puff (6.7gm Inhaler) INH 2 puff [id number] KOURTNEY Administration Alogliptin Benzoate 25 mg 09/19/20 09:00 09/19/20 07:42 Alogliptin 25 Mg Tab PO 25 mg DAILY KOURTNEY Administration Aspirin 325 mg 09/19/20 09:00 09/19/20 07:42 Aspirin 325 Mg Tab PO 325 mg DAILY KOURTNEY Administration Atorvastatin Calcium 20 mg 09/19/20 09:00 09/19/20 07:42 Atorvastatin Calcium 10 Mg Tab PO 20 mg DAILY KOURTNEY Administration Benzonatate 100 mg 09/18/20 01:30 09/19/20 21:32 Benzonatate 100 Mg Cap PO 100 mg TIDPRN KOURTNEY Administration Calcium Acetate 1,334 mg 09/18/20 21:00 09/19/20 21:31 Calcium Acetate 667 Mg Cap PO 1,334 mg TID KOURTNEY Administration Ferrous Sulfate 325 mg 09/19/20 09:00 09/19/20 07:42 Ferrous Sulfate 325 Mg Tab PO 325 mg DAILY KOURTNEY Administration Fish Oil 3,000 mg 09/19/20 09:00 09/19/20 07:41 Fish Oil 1,000 Mg Cap PO 3,000 mg DAILY KOURTNEY Administration Gabapentin 300 mg 09/19/20 09:00 09/19/20 09:49 Gabapentin 300 Mg Cap PO 300 mg DAILY KOURTNEY Administration Guaifenesin 600 mg 09/18/20 09:00 09/19/20 21:32 Guaifenesin Er 600 Mg Tab PO 600 mg Q12HR KOURTNEY Administration Heparin Sodium (Porcine) 5,000 units 09/18/20 09:00 09/19/20 21:31 Heparin 5,000 Units/Ml Vial SC 5,000 units TID KOURTNEY Administration Pantoprazole Sodium 40 mg 09/19/20 09:00 09/19/20 07:42 Pantoprazole 40 Mg Tab PO 40 mg DAILY KOURTNEY Administration Propylene Glycol 1 drop 09/18/20 21:00 09/19/20 21:32 Polyethylene Glycol Opth Drop 15 Ml Bot EA EYE 1 drp BID KOURTNEY Administration Ropinirole HCl 1 mg 09/18/20 21:00 09/19/20 21:31 Ropinirole Hcl 1 Mg Tab PO 1 mg BID KOURTNEY Administration Sacubitril/Valsartan 1 tab 09/18/20 21:00 09/20/20 05:12 Sacubitril 49 Mg/Valsartan 51 Mg Tablet PO Not Given BID KOURTNEY - Exam General Appearance: awake alert General - other findings: No distress Eye: anicteric sclera ENT: normocephalic atraumatic, moist mucosa Neck: supple, symmetric Respiratory: no wheezes, no ronchi, normal chest expansion, no tachypnea Cardiovascular: RRR Gastrointestinal: soft, non-tender, non-distended, normal bowel sounds Extremities: no edema Extremities - other findings: Bilateral AKA noted Neurological: CN's grossly intact, no focal deficits PSYCH: A&O x 3 Nephrology Results - Labs Result Diagrams: 09/18/20 01:56 09/19/20 08:49 Lab results: WBC 2.9 thou/uL (4.8-10.8) L 09/18/20 01:56 Hgb 10.9 g/dL (12.0-16.0) L 09/18/20 01:56 Hct 35.6 % (36.0-47.0) L 09/18/20 01:56 MCV 84.2 fL (78.0-98.0) 09/18/20 01:56 Plt Count 97 thou/uL (130-400) L 09/18/20 01:56 Neutrophils % 65.5 % (42.0-75.0) 09/17/20 19:34 Band Neuts % (Manual) 5 % (5-11) 09/18/20 01:56 Sodium 137 mmol/L (136-145) 09/19/20 08:49 Potassium 4.0 mmol/L (3.5-5.1) 09/19/20 08:49 Chloride 96 mmol/L (98-107) L 09/19/20 08:49 Carbon Dioxide 27 mmol/L (23-31) 09/19/20 08:49 BUN 36 mg/dL (9.8-20.1) H 09/19/20 08:49 Creatinine 7.14 mg/dL (0.6-1.1) H 09/19/20 08:49 Glucose 103 mg/dL (83-110) 09/19/20 08:49 Calcium 8.4 mg/dL (7.8-10.44) 09/19/20 08:49 Total Bilirubin 0.9 mg/dL (0.2-1.2) 09/17/20 19:34 AST 26 U/L (5-34) 09/17/20 19:34 ALT 12 U/L (8-55) 09/17/20 19:34 Alkaline Phosphatase 44 U/L (40-110) 09/17/20 19:34 CK-MB (CK-2) 1.7 ng/mL (0-6.6) 09/17/20 19:34 Troponin I 0.096 ng/mL (< 0.028) H 09/18/20 04:46 B-Natriuretic Peptide 611.2 pg/mL (0-100) H 09/18/20 08:19 Serum Total Protein 7.5 g/dL (6.0-8.3) 09/17/20 19:34 Albumin 3.6 g/dL (3.4-4.8) 09/19/20 08:49 Sodium 137 mmol/L (136-145) 09/19/20 08:49 Potassium 4.0 mmol/L (3.5-5.1) 09/19/20 08:49 Chloride 96 mmol/L (98-107) L 09/19/20 08:49 Carbon Dioxide 27 mmol/L (23-31) 09/19/20 08:49 Anion Gap 18 mmol/L (10-20) 09/19/20 08:49 BUN 36 mg/dL (9.8-20.1) H 09/19/20 08:49 Creatinine 7.14 mg/dL (0.6-1.1) H 09/19/20 08:49 Glucose 103 mg/dL (83-110) 09/19/20 08:49 Calcium 8.4 mg/dL (7.8-10.44) 09/19/20 08:49 Phosphorus 3.1 mg/dL (2.3-4.7) 09/19/20 08:49 Albumin 3.6 g/dL (3.4-4.8) 09/19/20 08:49 Nephrology AP PN - Plan ESRD on HD. Last treatment was on 09/18/2020. Patient used to dialyze on MWF but was moved over to TTS schedule. Will dialyze patient today HTN: Control is acceptable. Anemia in CKD. S/p Bilateral AKA. Disposition: can be discharged from nephrology point of view once transportation issue to facilitate outpatient dialysis is sorted.
[2020-09-20] MEDS: Albuterol 200 PUFF (6.7GM INHALER) INH SCH ×3 (08:57→15:17)
[2020-09-20] MEDS: Aspirin 325 MG TAB PO SCH (08:57)
[2020-09-20] MEDS: Calcium Acetate 667 MG CAP PO SCH ×2 (08:57→15:17)
[2020-09-20] MEDS: Fish Oil 1,000 MG CAP PO SCH (08:57)
[2020-09-20] MEDS: rOPINIRole HCl 1 MG TAB PO SCH (08:57)
[2020-09-20] MEDS: Heparin 5,000 UNITS/ML VIAL SC SCH ×2 (08:58→15:17)
[2020-09-20] MEDS: Atorvastatin Calcium 10 MG TAB PO SCH (08:58)
[2020-09-20] MEDS: Gabapentin 300 MG CAP PO SCH (08:58)
[2020-09-20] MEDS: Ferrous Sulfate 325 MG TAB PO SCH (08:58)
[2020-09-20] MEDS: guaiFENesin ER 600 MG TAB PO SCH (08:58)
[2020-09-20] MEDS: Carvedilol 6.25 MG TAB PO SCH ×2 (08:58→17:59)
[2020-09-20] MEDS: Alogliptin 25 MG TAB PO SCH (08:58)
[2020-09-20] MEDS: Polyethylene Glycol OPTH DROP 15 ML BOT EA EYE SCH (08:59)
[2020-09-20] MEDS ORDERED: Ketoconazole 2% Cream 15 gm Tube TOP SCH (09:00)
[2020-09-20 14:03] LABS: Hep B Surf Ag Non-Reactive S/CO (NonReactive)
[2020-09-21 09:25] VITALS: BP 91/71; TEMP 97.8
--- NOTE | 2020-09-22 16:57 | EKG ---
Test Reason : Blood Pressure : / mmHG Vent. Rate : 079 BPM Atrial Rate : 079 BPM P-R Int : 222 ms QRS Dur : 154 ms QT Int : 448 ms P-R-T Axes : 067 -35 097 degrees QTc Int : 513 ms Sinus rhythm with 1st degree A-V block Left axis deviation Left bundle branch block Abnormal ECG Confirmed by IGNACIA GARCIA ([id number]), associate editor LEONIE HOANG ([id number] on 09/22/2020 4:56:47 PM Referred By: Confirmed By:IGNACIA Mack
[2020-09-25] MEDS ORDERED: Ergocalciferol 1.25 MG(50,000 UNITS) CAP PO SCH (09:00)
== END 2020-09-20 20:55 | disposition short-term general hospital (02) | DRG 177 ==
LOC: ERS 19:10 → ERHOLD 23:15 → 2SW 09-18 13:59 → OBSVTOIN 09-18 16:45
PROVIDERS: ADMIT Family Medicine; ATTEND Family Medicine
PROC: 5A1D70Z Performance of Urinary Filtration, Intermittent, Less than 6 Hours Per Day (ICD-10-PCS; principal; 2020-09-18)
PROC: 8E0ZXY6 Isolation (ICD-10-PCS; 2020-09-18)
DX: U07.1 COVID-19 (principal); N18.6 End stage renal disease; I42.9 Cardiomyopathy, unspecified; I13.2 Hypertensive heart and chronic kidney disease with heart failure and with stage 5 chronic kidney disease, or end stage renal disease; B37.89 Other sites of candidiasis; N25.81 Secondary hyperparathyroidism of renal origin; R77.8 Other specified abnormalities of plasma proteins; G40.909 Epilepsy, unspecified, not intractable, without status epilepticus; I50.9 Heart failure, unspecified; E11.22 Type 2 diabetes mellitus with diabetic chronic kidney disease; E78.5 Hyperlipidemia, unspecified; E11.40 Type 2 diabetes mellitus with diabetic neuropathy, unspecified; D69.6 Thrombocytopenia, unspecified; R07.81 Pleurodynia; I25.10 Atherosclerotic heart disease of native coronary artery without angina pectoris; F32.9 Major depressive disorder, single episode, unspecified; D63.1 Anemia in chronic kidney disease; E55.9 Vitamin D deficiency, unspecified; Z89.512 Acquired absence of left leg below knee; Z99.2 Dependence on renal dialysis; Z89.511 Acquired absence of right leg below knee; Z98.42 Cataract extraction status, left eye; Z98.41 Cataract extraction status, right eye; Z90.49 Acquired absence of other specified parts of digestive tract; Z88.1 Allergy status to other antibiotic agents; Z79.899 Other long term (current) drug therapy; Z95.810 Presence of automatic (implantable) cardiac defibrillator; Z79.82 Long term (current) use of aspirin
CPT/HCPCS: 36415; 36416; 71045; 80048; 80053; 80061; 80069; 82553; 83036; 83880; 84484; 85025; 87340; 87635; 93005; J1644; U0003

== ENCOUNTER 2022-10-27 11:04 | Observation (INO) | payer MEDICARE ==
[2022-10-27 14:37] LABS: INR-International Normal Ratio 1.1; PTT 30.9 sec (22.9-36.1); Prothrombin Time 14.1 sec (12.0-14.7)
[2022-10-27 14:39] LABS: #Eosinphils 0.1 thou/uL (0.0-0.7); #Monocytes 0.3 thou/uL (0.11-0.59); %Basophils 0.2 % (0.0-1.0); %Eosinophils 3.5 % (0.0-10.0); %Lymphocytes 29.9 % (21.0-51.0); %Monocytes 8.2 % (0.0-10.0); %Neutrophils 58.2 % (42.0-75.0); Hemoglobin 11.4 g/dL (12.0-16.0); Mean Corpuscular HGB CONC 31.3 g/dL (32.0-36.0); Mean Corpuscular Volume 89.4 fl (78.0-98.0); Mean Platelet Volume 12.1 fL (7.4-10.4); Platelet Count 92 10x3/uL (130-400); RBC Distribution Width 16.4 % (11.5-14.5); Red Blood Cell (RBC) Count 4.07 mill/uL (4.20-5.40); White Blood Cell (WBC) Count 3.4 10x3/uL (4.8-10.8)
[2022-10-27 14:41] LABS: Anisocytosis SLIGHT = 6-15 cells (100X) (0-5/hpf); Large Platelets SLIGHT; MDiff Complete? YES; Ovalocytes SLIGHT = 2-5 cells (100X) (0-1/hpf); Platelet Morphology Comment Appears Decreased; Polychromasia SLIGHT = 2-3 cells (100X) (0-2/hpf)
[2022-10-27 14:44] LABS: ALT (SGPT) 9 U/L (8-55); AST (SGOT) 15 U/L (5-34); Albumin 3.6 g/dL (3.4-4.8); Alkaline Phosphatase 54 U/L (40-110); Anion Gap 13 mmol/L (10-20); BUN (Urea Nitrogen) 12 mg/dL (9.8-20.1); Calc. Creatinine Clearance 0 mL/min (70-130); Calcium 8.7 mg/dL (7.8-10.44); Carbon Dioxide 32 mmol/L (23-31); Chloride 95 mmol/L (98-107); Estimated GFR 14; Glucose 159 mg/dL (83-110); Potassium 3.4 mmol/L (3.5-5.1); Protein, Total 6.6 g/dL (5.8-8.1); Sodium 137 mmol/L (136-145)
[2022-10-27] MEDS ORDERED: Insulin Regular 300 UNITS/3 ML VIAL SC PRN (14:51)
[2022-10-27] MEDS ORDERED: Dextrose 50% Abboject 50 ML SYRINGE SLOW IVP PRN (14:51)
[2022-10-27] MEDS ORDERED: Dextrose 5% in Water 1,000 ML IV PRN (14:51)
[2022-10-27] MEDS ORDERED: Ondansetron PF 4 MG/2 ML Vial IVP PRN (14:51)
[2022-10-27] MEDS ORDERED: Ipratropium/Albuterol 3 ML NEB NEB PRN (14:51)
[2022-10-27] MEDS ORDERED: Sodium Chloride 0.9% 1,000 ML IV SCH (15:00)
[2022-10-27] MEDS: Calcium Acetate 667 MG CAP PO SCH (20:56)
[2022-10-27] MEDS: Carvedilol 6.25 MG TAB PO SCH (20:56)
[2022-10-27] MEDS: Sacubitril 49 MG/Valsartan 51 MG TABLET PO SCH (21:06)
[2022-10-27] MEDS: Docusate 100 MG CAP PO SCH (21:06)
[2022-10-27] MEDS: Senokot S 8.6-50 MG TAB PO SCH (21:06)
[2022-10-28] MEDS: Acetaminophen 325 MG TAB PO PRN ×2 (00:27→10:30)
[2022-10-28] MEDS ORDERED: Gabapentin 300 MG CAP PO SCH ×2 (03:00→09:00)
[2022-10-28 06:51] LABS: #Eosinphils 0.2 thou/uL (0.0-0.7); #Lymphocytes 1.4 thou/uL (1.20-3.40); #Monocytes 0.4 thou/uL (0.11-0.59); #Neutrophils 2.1 thou/uL (1.40-6.50); %Basophils 0.3 % (0.0-1.0); %Eosinophils 3.7 % (0.0-10.0); %Lymphocytes 34.8 % (21.0-51.0); %Monocytes 10.3 % (0.0-10.0); Hemoglobin 10.8 g/dL (12.0-16.0); Mean Corpuscular HGB CONC 32.2 g/dL (32.0-36.0); Mean Corpuscular Hemoglobin 28.7 pg (27.0-31.0); Mean Corpuscular Volume 89.1 fl (78.0-98.0); Platelet Count 99 10x3/uL (130-400); RBC Distribution Width 16.3 % (11.5-14.5); Red Blood Cell (RBC) Count 3.77 mill/uL (4.20-5.40); White Blood Cell (WBC) Count 4.1 10x3/uL (4.8-10.8)
[2022-10-28 07:10] LABS: Anion Gap 15 mmol/L (10-20); BUN (Urea Nitrogen) 22 mg/dL (9.8-20.1); Calc. Creatinine Clearance 13 mL/min (70-130); Calcium 8.6 mg/dL (7.8-10.44); Carbon Dioxide 29 mmol/L (23-31); Chloride 95 mmol/L (98-107); Estimated GFR 10; Glucose 87 mg/dL (83-110); Potassium 3.4 mmol/L (3.5-5.1); Sodium 136 mmol/L (136-145)
[2022-10-28 08:31] VITALS: BP 113/74; TEMP 98.7
[2022-10-28] MEDS ORDERED: Polyethylene Glycol 3350 17 GM Packet PO SCH ×2 (09:00)
[2022-10-28] MEDS ORDERED: Atorvastatin Calcium 20 MG TAB PO SCH (09:00)
[2022-10-28] MEDS ORDERED: Ferrous Sulfate 325 MG TAB PO SCH (09:00)
[2022-10-28] MEDS: Docusate 100 MG CAP PO SCH (10:04)
[2022-10-28] MEDS: Carvedilol 6.25 MG TAB PO SCH ×2 (10:04→17:28)
[2022-10-28] MEDS: Calcium Acetate 667 MG CAP PO SCH ×3 (10:04→17:28)
[2022-10-28] MEDS: Senokot S 8.6-50 MG TAB PO SCH (10:05)
[2022-10-28] MEDS: Sacubitril 49 MG/Valsartan 51 MG TABLET PO SCH (10:05)
[2022-10-30] MEDS ORDERED: FLU VACC QS2022-23(65YR UP)/PF 240 MCG/0.7 ML SYRINGE IM ONE (09:00)
[2022-11-03] MEDS ORDERED: Ergocalciferol 1.25 MG(50,000 UNITS) CAP PO SCH (09:00)
== END 2022-10-28 17:20 | disposition home or self-care (01) ==
LOC: ERS 11:04 → T4-A 14:47
PROVIDERS: ADMIT Surgery; ATTEND Surgery
DX: S06.6X0A Traumatic subarachnoid hemorrhage without loss of consciousness, initial encounter (principal); I13.2 Hypertensive heart and chronic kidney disease with heart failure and with stage 5 chronic kidney disease, or end stage renal disease; E11.22 Type 2 diabetes mellitus with diabetic chronic kidney disease; N18.6 End stage renal disease; I50.9 Heart failure, unspecified; E11.40 Type 2 diabetes mellitus with diabetic neuropathy, unspecified; E78.5 Hyperlipidemia, unspecified; M48.02 Spinal stenosis, cervical region; E04.2 Nontoxic multinodular goiter; E11.51 Type 2 diabetes mellitus with diabetic peripheral angiopathy without gangrene; G31.9 Degenerative disease of nervous system, unspecified; J32.0 Chronic maxillary sinusitis; Z79.82 Long term (current) use of aspirin; Z79.84 Long term (current) use of oral hypoglycemic drugs; Z79.899 Other long term (current) drug therapy; Z88.1 Allergy status to other antibiotic agents; Z95.810 Presence of automatic (implantable) cardiac defibrillator; Z89.511 Acquired absence of right leg below knee; Z89.512 Acquired absence of left leg below knee; Z99.2 Dependence on renal dialysis; V00.831A Fall from motorized mobility scooter, initial encounter
CPT/HCPCS: 70450 ×2; 72125; 80048; 80053; 82962 ×2; 85025 ×2; 85610; 85730; 97542; 99285; G0378 ×3; 36415; 36416; G0390

== ENCOUNTER 2023-03-28 10:03 | Emergency (ER) | payer MEDICARE ==
[2023-03-28] MEDS ORDERED: Iopamidol-370 76% 500 ML MDV (1 ML CHARGE) ONE (10:08)
[2023-03-28 10:32] LABS: #Monocytes 0.5 thou/uL (0.11-0.59); %Basophils 0.4 % (0.0-1.0); %Eosinophils 0.1 % (0.0-10.0); %Lymphocytes 9.4 % (21.0-51.0); %Monocytes 7.2 % (0.0-10.0); %Neutrophils 82.5 % (42.0-75.0); Hemoglobin 11.9 g/dL (12.0-16.0); Mean Corpuscular HGB CONC 30.8 g/dL (32.0-36.0); Mean Corpuscular Hemoglobin 26.6 pg (27.0-31.0); Mean Corpuscular Volume 86.4 fl (78.0-98.0); Mean Platelet Volume 13.6 fL (7.4-10.4); Platelet Count 140 10x3/uL (130-400); RBC Distribution Width 16.5 % (11.5-14.5); Red Blood Cell (RBC) Count 4.47 mill/uL (4.20-5.40); White Blood Cell (WBC) Count 7.2 10x3/uL (4.8-10.8)
[2023-03-28 10:52] LABS: INR-International Normal Ratio 1.1; PTT 31.9 sec (22.9-36.1); Prothrombin Time 14.5 sec (12.0-14.7)
[2023-03-28 10:58] LABS: ALT (SGPT) 8 U/L (8-55); AST (SGOT) 19 U/L (5-34); Albumin 3.9 g/dL (3.4-4.8); Alkaline Phosphatase 55 U/L (40-110); Anion Gap 24 mmol/L (10-20); BUN (Urea Nitrogen) 23 mg/dL (9.8-20.1); Bilirubin, Total 1.5 mg/dL (0.2-1.2); Calc. Creatinine Clearance 0 mL/min (70-130); Carbon Dioxide 25 mmol/L (23-31); Chloride 94 mmol/L (98-107); Estimated GFR 9; Glucose 135 mg/dL (83-110); Lipase 4 U/L (8-78); Potassium 4.5 mmol/L (3.5-5.1); Protein, Total 7.9 g/dL (5.8-8.1); Sodium 138 mmol/L (136-145)
[2023-03-28 11:25] LABS: CKMB 8.6 ng/mL (0-6.6)
== END 2023-03-28 13:11 | disposition short-term general hospital (02) ==
LOC: ERS 10:03
DX: I63.9 Cerebral infarction, unspecified (principal); N17.9 Acute kidney failure, unspecified; I21.4 Non-ST elevation (NSTEMI) myocardial infarction; E11.22 Type 2 diabetes mellitus with diabetic chronic kidney disease; I12.0 Hypertensive chronic kidney disease with stage 5 chronic kidney disease or end stage renal disease; N18.6 End stage renal disease; Z79.899 Other long term (current) drug therapy
CPT/HCPCS: 0042T; 51701; 70450; 70496; 70498; 71045; 80053; 82140; 82553; 82962; 83605; 83690; 83880; 84484; 85025; 85610; 85730; 87040; 93005; 94760; 99291; 36415; 36416; Q9967